=== PATIENT | female | born 1985 | race Caucasian/White ===

== ENCOUNTER 2018-11-21 09:01 | Outpatient (CLI) | payer OTHER ==
[~2018-11-21] VITALS: Ht 152.4 cm; Wt 104.3 kg
== END 2018-11-21 15:40 | disposition home or self-care (01) ==
LOC: OFIC 805 09:01
DX: H54.61 Unqualified visual loss, right eye, normal vision left eye (principal); J32.0 Chronic maxillary sinusitis

== ENCOUNTER 2023-01-25 09:25 | Emergency (ER) | payer OTHER ==
[~2023-01-25] VITALS: Ht 152.4 cm; Wt 124.7 kg
[2023-01-25] MEDS ORDERED: LANTUS SOL100 UNIT/1 SQ (09:50)
[2023-01-25] MEDS ORDERED: HUMALOG100 UNIT/2 SQ (09:51)
== END 2023-01-25 10:43 | disposition home or self-care (01) ==
LOC: ER 09:25
DX: L03.012 Cellulitis of left finger (principal); E11.8 Type 2 diabetes mellitus with unspecified complications; Z79.4 Long term (current) use of insulin